=== PATIENT | male | born 1955 | race Caucasian/White ===

== ENCOUNTER 2017-03-18 08:27 | Emergency (ER) | payer OTHER ==
[~2017-03-18] VITALS: Ht 188 cm; Wt 117.9 kg
[2017-03-18] MEDS ORDERED: NORVASC2.5 MG PO (08:35)
[2017-03-18] MEDS ORDERED: FLOMAX0.4 MG PO (08:35)
[2017-03-18] MEDS ORDERED: HYDROCHLOROTH12.5 M1 PO (08:35)
[2017-03-18] MEDS ORDERED: PANTOPRAZOLE SO40 M1 PO (08:36)
[2017-03-18 10:18] VITALS: BP 160/112
== END 2017-03-18 10:30 | disposition home or self-care (01) ==
LOC: ER 08:27
DX: R04.0 Epistaxis (principal); Z91.041 Radiographic dye allergy status; Z88.5 Allergy status to narcotic agent; Z88.6 Allergy status to analgesic agent; Z88.2 Allergy status to sulfonamides